=== PATIENT | male | born 1940 | race Caucasian/White ===

== ENCOUNTER 2020-04-13 07:33 | Outpatient (REF) | payer MEDICARE, SELFPAY ==
[2020-04-13 08:14] LABS: MANUAL DIFF FLAG NO
[2020-04-13 08:18] LABS: Basophils Absolute Auto 0.1 X10*3/uL (0.0-0.2); Basophils Percent Auto 1.1 % (0-2); Eosinophils Absolute Auto 0.3 X10*3/uL (0.0-0.4); Hematocrit 38.2 % (42-52); Hemoglobin 12.6 g/dl (14.0-18.0); Imm Gran Abs Auto 0.01 X10*3/uL (0.00-0.03); Imm Gran Pct Auto 0.2 % (0.0-0.4); Lymphocytes Absolute Auto 2.2 X10*3/uL (1.2-4.9); Lymphocytes Percent Auto 34.7 % (20-40); Mean Corpuscular Hemoglobin 32.3 pg (27.0-33.0); Mean Corpuscular Volume 97.9 fL (80-98); Mean Platelet Volume 9.5 fL (9.4-12.4); Monocytes Absolute Auto 0.8 X10*3/uL (0.1-1.2); Monocytes Percent Auto 11.8 % (2-11); Neutrophils Percent Auto 47.2 % (45-73); Platelet Count 279 X10*3/uL (160-400); Red Cell Distribution Width 16.3 % (11.0-16.0); White Blood Count 6.4 X10*3/uL (4.8-10.8)
[2020-04-13 09:21] LABS: Alanine Aminotransferase 17 U/L (0-40); Albumin Level 3.7 g/dL (3.5-5.0); Alkaline Phosphatase 79 U/L (39-117); Anion Gap 11 (12-20); Aspartate Amino Transferase 21 U/L (5-37); Bilirubin Total 0.5 mg/dL (0.0-1.0); Blood Urea Nitrogen 22 mg/dL (9-16); Calcium 9.1 mg/dL (8.4-10.2); Carbon Dioxide 29 mmol/L (22-29); Chloride 105 mmol/L (96-108); Cholesterol 143 mg/dL; Estimated Glomerular Filt Rate > 60; Glucose Fasting 124 mg/dL (60-99); HDL Cholesterol 38 mg/dL; LDL Cholesterol Calculated 80 mg/dl; Potassium 4.6 mmol/l (3.3-5.1); Sodium 140 mmol/L (135-145); Total Protein 6.9 g/dL (6.5-8.0); Triglycerides 127 mg/dL
[2020-04-13 10:25] LABS: Vitamin B12 < 146 pg/mL (200-900)
== END 2020-04-13 07:34 | disposition home or self-care (01) ==
LOC: HO.LAB 07:33
PROVIDERS: Visit Provider Internal Medicine
DX: E11.9 Type 2 diabetes mellitus without complications (principal); D51.0 Vitamin B12 deficiency anemia due to intrinsic factor deficiency
CPT/HCPCS: 36415; 80053; 80061; 82607; 82746; 85025

== ENCOUNTER → 2020-06-14 09:46 | Outpatient (BNV) | payer MEDICARE, SELFPAY | PROVIDERS: PCP Internal Medicine; Visit Provider Internal Medicine | DX: D64.9 Anemia, unspecified (principal); D51.0 Vitamin B12 deficiency anemia due to intrinsic factor deficiency | CPT/HCPCS: 99213; 99214 ==

== ENCOUNTER 2020-10-13 10:02 | Outpatient (REF) | payer MEDICARE, SELFPAY ==
--- NOTE | ~2020-10-13 | XR_ITS ---
EXAMINATION: XR KNEE, RIGHT CLINICAL INFORMATION: Unilateral primary osteoarthritis COMPARISON: None TECHNIQUE: 4 view right knee. FINDINGS: There is no evidence of acute fracture or dislocation of the right knee. Right knee joint spaces are maintained. No right knee effusion. XR/XR knee RT 3V IMPRESSION: No significant right knee abnormality appreciated.
== END 2020-10-13 10:03 | disposition home or self-care (01) ==
LOC: HO.XRAY 10:02
PROVIDERS: PCP Internal Medicine; Visit Provider Internal Medicine
DX: M17.11 Unilateral primary osteoarthritis, right knee (principal)
CPT/HCPCS: 73562

== ENCOUNTER 2021-06-17 06:59 | Outpatient (REF) | payer MEDICARE, MEDICAID, SELFPAY ==
[2021-06-17 07:12] LABS: MANUAL DIFF FLAG NO
[2021-06-17 07:57] LABS: Basophils Absolute Auto 0.1 X10*3/uL (0.0-0.2); Basophils Percent Auto 1.3 % (0-2); Eosinophils Absolute Auto 0.4 X10*3/uL (0.0-0.4); Eosinophils Percent Auto 6.9 % (0-4); Hemoglobin 12.9 g/dl (14.0-18.0); Imm Gran Abs Auto 0.01 X10*3/uL (0.00-0.03); Imm Gran Pct Auto 0.2 % (0.0-0.4); Lymphocytes Absolute Auto 2.2 X10*3/uL (1.2-4.9); Lymphocytes Percent Auto 35.8 % (20-40); Mean Corpuscular HGB Conc 32.3 g/dl (31.0-36.0); Mean Corpuscular Hemoglobin 31.4 pg (27.0-33.0); Mean Corpuscular Volume 97.3 fL (80.0-98.0); Mean Platelet Volume 10.1 fL (9.4-12.4); Monocytes Absolute Auto 0.7 X10*3/uL (0.1-1.2); Monocytes Percent Auto 11.6 % (2-11); Neutrophils Absolute Auto 2.7 x10*3/uL (2.0-8.3); Neutrophils Percent Auto 44.2 % (45-73); Platelet Count 283 X10*3/uL (160-400); Red Blood Count 4.11 X10*6/uL (4.60-5.80); White Blood Count 6.1 X10*3/uL (4.8-10.8)
[2021-06-17 08:24] LABS: Alanine Aminotransferase 18 U/L (0-40); Albumin Level 3.7 g/dL (3.5-5.0); Alkaline Phosphatase 96 U/L (39-117); Anion Gap 9 (12-20); Aspartate Amino Transferase 23 U/L (5-37); Bilirubin Total 0.8 mg/dL (0.0-1.0); Blood Urea Nitrogen 18 mg/dL (9-16); Calcium 9.5 mg/dL (8.4-10.2); Carbon Dioxide 30 mmol/L (22-29); Chloride 107 mmol/L (96-108); Cholesterol 117 mg/dL; Estimated Glomerular Filt Rate > 60; Glucose Fasting 139 mg/dL (60-99); HDL Cholesterol 35 mg/dL; Iron 94 mcg/dL (45-160); LDL Cholesterol Calculated 61 mg/dl; Percent Iron Saturation 28 % (15-50); Potassium 4.4 mmol/L (3.3-5.1); Sodium 142 mmol/L (135-145); Total Iron Binding Capacity 338 mcg/dL (228-428); Triglycerides 106 mg/dL; Unsaturated Iron Binding 244 ug/dL
[2021-06-17 08:29] LABS: Creatinine Urine 123.17 mg/dL; Microalbumin Urine < 5.0 mg/L
[2021-06-19 08:21] LABS: Folate 7.7 ng/mL (> or = 4.0); Vitamin B12 395 pg/mL (200-900)
[2021-06-23 01:06] LABS: Vitamin D 25-OH, D2 <4 ng/mL; Vitamin D 25-OH, D3 28 ng/mL; Vitamin D 25-OH, Total 28 ng/mL (30-100)
== END 2021-06-17 07:00 | disposition home or self-care (01) ==
LOC: HO.LAB 06:59
PROVIDERS: PCP Internal Medicine; Visit Provider Internal Medicine
DX: E55.9 Vitamin D deficiency, unspecified (principal); E11.9 Type 2 diabetes mellitus without complications; E78.5 Hyperlipidemia, unspecified; M17.11 Unilateral primary osteoarthritis, right knee; D64.9 Anemia, unspecified; D51.0 Vitamin B12 deficiency anemia due to intrinsic factor deficiency
CPT/HCPCS: 36415; 80053; 80061; 82043; 82306; 82607; 82746; 83540; 85025

== ENCOUNTER 2021-07-21 14:16 | Emergency (ER) | payer OTHER, SELFPAY ==
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
[2021-07-21 14:24] VITALS: BP 150/79; PULSE 98; RESP 18; TEMP 36.1; O2SAT 98
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
[2021-07-21 16:35] VITALS: BP 123/57; PULSE 84; RESP 18; TEMP 36.6; O2SAT 98
== END 2021-07-21 19:04 | disposition home or self-care (01) ==
PROVIDERS: Emergency Provider Emergency Medicine; PCP Internal Medicine
DX: M19.012 Primary osteoarthritis, left shoulder (principal); M54.50 Low back pain, unspecified; I10 Essential (primary) hypertension; Z79.899 Other long term (current) drug therapy; Z87.891 Personal history of nicotine dependence
CPT/HCPCS: 73030; 99283; 99284

== ENCOUNTER 2021-11-04 06:44 | Outpatient (REF) | payer OTHER, SELFPAY ==
[2021-11-04 09:07] LABS: Alanine Aminotransferase 18 U/L (0-40); Albumin Level 3.7 g/dL (3.5-5.0); Alkaline Phosphatase 88 U/L (39-117); Anion Gap 9 (12-20); Aspartate Amino Transferase 21 U/L (5-37); Bilirubin Total 0.6 mg/dL (0.0-1.0); Blood Urea Nitrogen 18 mg/dL (9-16); Calcium 8.9 mg/dL (8.4-10.2); Carbon Dioxide 29 mmol/L (22-29); Chloride 107 mmol/L (96-108); Cholesterol 130 mg/dL; Estimated Glomerular Filt Rate > 60; Glucose Fasting 125 mg/dL (60-99); HDL Cholesterol 28 mg/dL; LDL Cholesterol Calculated 75 mg/dl; Potassium 4.5 mmol/L (3.3-5.1); Sodium 140 mmol/L (135-145); Triglycerides 139 mg/dL
[2021-11-04 10:20] LABS: Creatinine Urine 217.75 mg/dL; Microalbum/Creatinine Ratio Ur 4.5 ug/mg cr
[2021-11-04 10:28] LABS: Folate 9.3 ng/mL (> or = 4.0); Vitamin B12 356 pg/mL (200-900)
== END 2021-11-04 06:45 | disposition home or self-care (01) ==
LOC: HO.LAB 06:44
PROVIDERS: PCP Internal Medicine; Visit Provider Internal Medicine
DX: E11.9 Type 2 diabetes mellitus without complications (principal); E78.5 Hyperlipidemia, unspecified; D51.0 Vitamin B12 deficiency anemia due to intrinsic factor deficiency
CPT/HCPCS: 36415; 80053; 80061; 82043; 82607; 82746

== ENCOUNTER 2022-07-06 07:03 | Outpatient (REF) | payer OTHER, SELFPAY ==
[2022-07-06 07:11] LABS: MANUAL DIFF FLAG NO
[2022-07-06 07:30] LABS: Basophils Absolute Auto 0.1 X10*3/uL (0.0-0.2); Basophils Percent Auto 1.4 % (0-2); Eosinophils Absolute Auto 0.7 X10*3/uL (0.0-0.4); Eosinophils Percent Auto 9.9 % (0-4); Imm Gran Abs Auto 0.01 X10*3/uL (0.00-0.03); Imm Gran Pct Auto 0.2 % (0.0-0.4); Lymphocytes Absolute Auto 2.5 X10*3/uL (1.2-4.9); Lymphocytes Percent Auto 38.7 % (20-40); Mean Corpuscular HGB Conc 33.3 g/dl (31.0-36.0); Mean Corpuscular Hemoglobin 31.4 pg (27.0-33.0); Mean Corpuscular Volume 94.2 fL (80.0-98.0); Mean Platelet Volume 9.5 fL (9.4-12.4); Monocytes Absolute Auto 0.9 X10*3/uL (0.1-1.2); Monocytes Percent Auto 13.2 % (2-11); Neutrophils Absolute Auto 2.4 x10*3/uL (2.0-8.3); Neutrophils Percent Auto 36.6 % (45-73); Platelet Count 232 X10*3/uL (160-400); Red Blood Count 4.14 X10*6/uL (4.60-5.80); Red Cell Distribution Width 16.2 % (11.0-16.0); White Blood Count 6.6 X10*3/uL (4.8-10.8)
[2022-07-06 07:55] LABS: Creatinine Urine 190.41 mg/dL; Microalbum/Creatinine Ratio Ur 3.6 ug/mg cr
[2022-07-06 08:07] LABS: Alanine Aminotransferase 18 U/L (0-40); Albumin Level 3.5 g/dL (3.5-5.0); Alkaline Phosphatase 81 U/L (39-117); Anion Gap 11 (12-20); Aspartate Amino Transferase 22 U/L (5-37); Bilirubin Total 0.8 mg/dL (0.0-1.0); Blood Urea Nitrogen 20 mg/dL (9-16); Calcium 9.1 mg/dL (8.4-10.2); Carbon Dioxide 29 mmol/L (22-29); Chloride 105 mmol/L (96-108); Cholesterol 135 mg/dL; Estimated Glomerular Filt Rate > 60; Glucose Fasting 141 mg/dL (60-99); HDL Cholesterol 29 mg/dL; LDL Cholesterol Calculated 69 mg/dl; Potassium 4.4 mmol/L (3.3-5.1); Sodium 141 mmol/L (135-145); Total Protein 6.9 g/dL (6.5-8.0); Triglycerides 188 mg/dL
[2022-07-06 08:28] LABS: Vitamin B12 564 pg/mL (200-900); Vitamin D 25-OH Total 28.2 ng/mL (>30)
== END 2022-07-06 07:04 | disposition home or self-care (01) ==
LOC: HO.LAB 07:03
PROVIDERS: PCP Internal Medicine; Visit Provider Internal Medicine
DX: Z00.00 Encounter for general adult medical examination without abnormal findings (principal); E11.9 Type 2 diabetes mellitus without complications; E55.9 Vitamin D deficiency, unspecified; D51.0 Vitamin B12 deficiency anemia due to intrinsic factor deficiency; D64.9 Anemia, unspecified; E78.5 Hyperlipidemia, unspecified
CPT/HCPCS: 36415; 80053; 80061; 82043; 82306; 82607; 82746; 85025

== ENCOUNTER 2022-10-05 06:36 | Outpatient (REF) | payer OTHER, SELFPAY ==
[2022-10-05 07:59] LABS: Alanine Aminotransferase 16 U/L (0-40); Albumin Level 3.5 g/dL (3.5-5.0); Alkaline Phosphatase 83 U/L (39-117); Anion Gap 10 (12-20); Aspartate Amino Transferase 20 U/L (5-37); Blood Urea Nitrogen 17 mg/dL (9-16); Calcium 9.3 mg/dL (8.4-10.2); Carbon Dioxide 28 mmol/L (22-29); Chloride 106 mmol/L (96-108); Cholesterol 114 mg/dL; Estimated Glomerular Filt Rate > 60; Glucose Fasting 133 mg/dL (60-99); HDL Cholesterol 23 mg/dL; LDL Cholesterol Calculated 57 mg/dl; Potassium 4.2 mmol/L (3.3-5.1); Sodium 140 mmol/L (135-145); Total Protein 7.1 g/dL (6.5-8.0); Triglycerides 172 mg/dL
[2022-10-05 08:15] LABS: Vitamin D 25-OH Total 31.7 ng/mL (>30)
[2022-10-05 08:34] LABS: Folate 8.9 ng/mL (> or = 4.0); Vitamin B12 577 pg/mL (200-900)
[2022-10-05 09:15] LABS: Creatinine Urine 176.65 mg/dL; Microalbumin Urine < 5.0 mg/L
== END 2022-10-05 06:37 | disposition home or self-care (01) ==
LOC: HO.LAB 06:36
PROVIDERS: PCP Internal Medicine; Visit Provider Internal Medicine
DX: E11.9 Type 2 diabetes mellitus without complications (principal); E55.9 Vitamin D deficiency, unspecified; E53.8 Deficiency of other specified B group vitamins; E78.5 Hyperlipidemia, unspecified
CPT/HCPCS: 36415; 80053; 80061; 82043; 82306; 82607; 82746

== ENCOUNTER 2022-12-11 09:08 | Outpatient (AMB) | payer OTHER, SELFPAY ==
[2022-12-11 09:31] VITALS: BP 108/70; BMI 28.7
--- NOTE | 2022-12-11 09:31 | A.OFFPC_ITS ---
Vital Signs 12/11/22 09:31 Height 5 ft 4 in Weight 167 lb BMI 28.7 BP 108/70 Blood Pressure Location Lt brachial Position Sitting Intake Visit Reasons: dm Intake Note: Patient here for a follow up DM Flow Match Sofa Cutter Required: No Accompanied by: Self / Same As Patient Allergies terbinafine Allergy (Intermediate, Verified 12/11/22 09:49) dyspepsia influenza vaccine Allergy (Intermediate, Uncoded 12/11/22 09:49) fever,chills Medication List - Last Reconciled 12/11/22 by Yennifer Rodrigez MD aspirin (Adult Low Dose Aspirin) 81 mg PO DAILY 90 days atorvastatin 40 mg PO DAILY 90 days loratadine (Allergy Relief (loratadine)) 10 mg PO DAILY 90 days losartan 25 mg PO DAILY 90 days mecobalamin (vitamin B12) 1 mcg IM DAILY metformin 500 mg PO BID 90 days pioglitazone 45 mg PO DAILY 90 days Tobacco use date assessed: 07/11/22 Fall risk assessment: 2 + Falls in past year Last assessed Fall Risk: 12/11/22 Dental Screening Dental Screen Date: 12/11/22 Did you have a dental visit in the last 12 months?: No Did you have a dental problem in the last 6 months where you did not have access to dental care?: No HPI HPI Comments History of Present Illness Details This is a 62-year-old male with diabetes mellitus type 2, hypertension, dyslipidemia and pernicious anemia that comes today for follow-up on his conditions. A1c within goal. Blood pressure stable. LDL within goal. Vitamin B12 normal on supplements. No chest pain or shortness of breath. [facility] Medical History Diabetes mellitus Dyslipidemia Essential hypertension Osteoarthritis of right knee Pernicious anemia Surgical History History of laparoscopic cholecystectomy History of left cataract extraction History of shoulder surgery Family History Father Stroke Mother Diabetes Daughter Asthma Son Asthma Son Asthma Social History Household Members: Significant Other Housing: Apartment Alcohol intake: current Alcohol intake frequency: holidays/special occasions only Alcohol type: beer, wine and hard liquor Patient Tobacco Use Status: Former Tobacco user Tobacco use type: Cigarette Cigarette Packs Per Day: 2 e-Cigarette/Vaping Use: Never Used Second Hand Smoke Exposure: No service: No Current occupational status: disabled Cognitive needs: No Hearing needs: No Vision needs: Yes Questionnaire Thrive Questionnaire Date Thrive assessed: 07/11/22 BALDO-7 AMB Questionnaire BALDO-7 Date BALDO - 7 assessed: 07/11/22 Source: Developed by Drs. Alfred Gallagher, Emy Denson, Zack Jeff and colleagues, with an educational bin from [employer]. Review of Systems Const All systems reviewed & are unremarkable except as noted in HPI and below Eyes Reports no additional complaints, Denies change in vision and Denies other visual disturbances Card Denies chest pain at rest, Denies chest pain with activity, Denies edema, Denies irregular heart rhythm, Denies claudication, Denies dyspnea, Denies dyspnea on exertion, Denies orthopnea, Denies paroxysmal nocturnal dyspnea and Denies slow heart rate Resp Denies cough, Denies dyspnea and Denies dyspnea on exertion GI Denies abdominal pain, Denies change in bowel habits, Denies excessive flatus, Denies nausea and Denies vomiting Denies urinary hesitancy, Denies urinary incontinence and Denies urinary urgency Musc Denies abnormal gait, Denies atrophy, Denies deformity and Denies limited range of motion Skin/Breast Denies bleeding lesions, Denies changing lesions and Denies rash Neuro Denies abnormal gait and Denies lack of coordination Physical exam (Primary Care) Vital Signs: Last Vital Signs BP 108/70 12/11/22 09:31 BMI result Body Mass Index 28.7 Tobacco/Smoking Status: Tobacco use Status Tobacco use date assessed 07/11/22 12/11/22 09:34 Patient Tobacco Use Status Former Tobacco user 12/11/22 09:34 Tobacco use type Cigarette 12/11/22 09:34 e-Cigarette/Vaping Use Never Used 12/11/22 09:34 Thrive Assessment: Date of Thrive Assessment Date Thrive assessed 07/11/22 12/11/22 09:34 Eyes General: appearance normal, both eyes and all related structures Eyelids: Yes eyelids normal Conjunctivae: conjunctivae normal Neck Neck: Yes normal visual inspection and Yes supple Resp Effort & Inspection: normal respiratory effort Auscultation: clear to auscultation bilaterally Cardio Jugular venous distension: no JVD Rate: regular rate Rhythm: regular rhythm Heart sounds: S1 normal heart sound present and S2 normal heart sound present Extrem General: Yes full ROM Results AMB Hemoglobin A1c AMB Hemoglobin A1c 6.8 % Last Edit by NIRMALA Mart on 12/11/22 09:4 0 Results Reviewed Results Reviewed: Laboratory Last Values Hgb A1c (Clinic) 6.8 % (4.0-6.0) H 12/11/22 09:34 Assessment and Plan Assessment & Plan (1) Diabetes mellitus: Code(s): E11.9 - Type 2 diabetes mellitus without complications Qualifiers: Diabetes mellitus type: type 2 Diabetes mellitus half-way insulin use: without terminal operations supervisor use Diabetes mellitus complication status: without complication Qualified Code(s): E11.9 - Type 2 diabetes mellitus without complications Plan: Continue metformin and Actos. A1c goal is equal or less than 7%. (2) Pernicious anemia: Code(s): D51.0 - Vitamin B12 deficiency anemia due to intrinsic factor deficiency Plan: Continue vitamin B12 supplements. Start folic acid. (3) Essential hypertension: Code(s): I10 - Essential (primary) hypertension Plan: Continue losartan. Blood pressure goal is equal or less than 130/80 P (4) Dyslipidemia: Code(s): E78.5 - Hyperlipidemia, unspecified Plan: Continue statins. LDL goal is less than 70. Orders: Orders Lipid Panel 4 Months E78.5 - Hyperlipidemia, unspecified Microalbumin, Random (w Creat) 4 Months E11.9 - Type 2 diabetes mellitus without complications Vitamin B12 and Folate 4 Months E53.8 - Deficiency of other specified B group vitamins Vitamin D 25-OH Total 4 Months E55.9 - Vitamin D deficiency, unspecified Comprehensive [place]. Panel Fast 4 Months E11.9 - Type 2 diabetes mellitus without complications AMB Hemoglobin A1c Today E11.9 - Type 2 diabetes mellitus without complications Referrals Ophthalmology Referral E11.9 - Type 2 diabetes mellitus without complications Medications: New folic acid 1 mg PO DAILY 90 tabs 1RF 90 days Coding Level of Care Code Est Pt Level 4 (84524) Diagnoses Diabetes mellitus E11.9 Diabetes mellitus type: type 2 Diabetes mellitus terminal operations supervisor insulin use: without half-way use Diabetes mellitus complication status: without complication Pernicious anemia D51.0 Essential hypertension I10 Dyslipidemia E78.5 Time Spent (min) 21
== END 2022-12-11 10:19 | disposition home or self-care (01) ==
PROVIDERS: PCP Internal Medicine; Visit Provider Internal Medicine
DX: E11.9 Type 2 diabetes mellitus without complications (principal); D51.0 Vitamin B12 deficiency anemia due to intrinsic factor deficiency; I10 Essential (primary) hypertension; E78.5 Hyperlipidemia, unspecified
CPT/HCPCS: 83036; 99214

== ENCOUNTER 2023-05-29 10:19 | Outpatient (AMB) | payer OTHER, SELFPAY ==
--- NOTE | 2023-05-29 10:21 | A.OFFPC_ITS ---
Vital Signs 05/29/23 10:24 Height 5 ft 7 in Weight 166 lb BMI 26.0 BP 108/62 Blood Pressure Location Lt brachial Position Sitting Intake Visit Reasons: dm Intake Note: Patient here for a follow up DM Quality Worker Required: No Accompanied by: Self / Same As Patient Allergies terbinafine Allergy (Intermediate, Verified 05/29/23 10:37) dyspepsia influenza vaccine Allergy (Intermediate, Uncoded 05/29/23 10:37) fever,chills Medication List - Last Reconciled 05/29/23 by Yennifer Rodrigez MD aspirin (Adult Low Dose Aspirin) 81 mg PO DAILY 90 days atorvastatin 40 mg PO DAILY 90 days folic acid 1 mg PO DAILY 90 days loratadine (Allergy Relief (loratadine)) 10 mg PO DAILY 90 days losartan 25 mg PO DAILY 90 days mecobalamin (vitamin B12) 1 mcg IM DAILY metformin 500 mg PO BID 90 days pioglitazone 45 mg PO DAILY 90 days Tobacco use date assessed: 05/29/23 Fall risk assessment: 1 Fall in past year Last assessed Fall Risk: 05/29/23 Dental Screening Dental Screen Date: 05/29/23 Did you have a dental visit in the last 12 months?: No Did you have a dental problem in the last 6 months where you did not have access to dental care?: No Was dental information given to patient?: Patient has dentist HPI HPI Comments History of Present Illness Details This is an 82-year-old male with diabetes mellitus type 2, hypertension, dyslipidemia and pernicious anemia that comes today for follow-up on his conditions. A1c elevated and I will increase metformin. He will continue Actos. Blood pressure stable. Last LDL within goal. On vitamin B12 injections once a month for his pernicious anemia which is follow by Hematology-Oncology. No chest pain or shortness of breath. [facility] Medical History Osteoarthritis of right knee Dyslipidemia Essential hypertension Pernicious anemia Diabetes mellitus Surgical History History of left cataract extraction History of laparoscopic cholecystectomy History of shoulder surgery Family History Father Stroke Mother Diabetes Daughter Asthma Son Asthma Son Asthma Social History Household Members: Significant Other Housing: Apartment Alcohol intake: current Alcohol intake frequency: holidays/special occasions only Alcohol type: beer, wine and hard liquor Patient Tobacco Use Status: Former Tobacco user Tobacco use type: Cigarette Cigarette Packs Per Day: 2 e-Cigarette/Vaping Use: Never Used Second Hand Smoke Exposure: No service: No Current occupational status: disabled Cognitive needs: No Hearing needs: No Vision needs: Yes Questionnaire PHQ-9 Over the last 2 weeks, how often have you been bothered by any of the following problems? 1. Little interest or pleasure in doing things: not at all 2. Feeling down, depressed, or hopeless: not at all 3. Trouble falling or staying asleep, or sleeping too much: not at all 4. Feeling tired or having little energy: not at all 5. Poor appetite or overeating: not at all 6. Feeling bad about yourself - or that you are a failure or have let yourself or your family down: not at all 7. Trouble concentrating on things, such as reading the newspaper or watching television: not at all 8. Moving or speaking so slowly that other people could have noticed. Or the opposite - being so fidgety or restless that you have been moving around a lot more than usual: not at all 9. Thoughts that you would be better off or of hurting yourself in some way: not at all Total score: 0 Depression Screening Interpretation: Negative Depression Screening Done: Yes 30199 - PHQ-9 Billing: Yes Source: Developed by Drs. Alfred Gallagher, Emy Denson, Zack Jeff and colleagues, with an educational bin from [employer]. Thrive Questionnaire Date Thrive assessed: 05/29/23 I am a: Patient What is your living situation today?: I have a steady place to live Within the past 12 months, did the food you bought not last and you didn't have the money to get more?: Never true Within the past 12 months, did you worry whether your food would run out before you got money to buy more?: Never true Do you have trouble paying for medicines?: No Do you have trouble getting transportation to medical appointments?: No Do you have trouble paying your heating and electricity bill?: No Do you have trouble taking care of your child, family member or friend?: No Do you have trouble with day-to-day activities such as bathing, preparing meals, shopping, managing finances, etc.?: No Are you currently unemployed and looking for a job?: No Are you interested in more education?: No Please select the resources that you would like help with: None Currently or been in a relationship where the following occur: no concerns reported THRIVE Score: 0 AUDIT C Alcohol Use Questionnaire (AUDIT-C) 1. How often do you have a drink containing alcohol?: Monthly or less 2. How many drinks containing alcohol do you have on a typical day when you are drinking?: 1 or 2 3. How often do you have six or more drinks on one occasion?: Never Total Score: 1 Score Reviewed/Action Taken: Yes BALDO-7 AMB Questionnaire BALDO-7 Date BALDO - 7 assessed: 05/29/23 Feeling nervous, anxious, or on edge: 0 = Not at all Not being able to stop or control worryin = Not at all Worrying too much about different things: 0 = Not at all Trouble relaxin = Not at all Being so restless that it is hard to sit still: 0 = Not at all Becoming easily annoyed or irritable: 0 = Not at all Feeling afraid as if something awful might happen: 0 = Not at all Total BALDO-7 score (0-4 normal; 5-9 mild; 10-14 moderate; 15-21 severe): 0 Source: Developed by Drs. Alfred Gallagher, Emy Denson, Zack Jeff and colleagues, with an educational bin from [employer]. BALDO-7 Assessment Billing BALDO-7 Assessment Tool: BALDO-7 Assessment 61399 Review of Systems Const All systems reviewed & are unremarkable except as noted in HPI and below Eyes Reports no additional complaints, Denies change in vision and Denies other visual disturbances Card Denies chest pain at rest, Denies chest pain with activity, Denies edema, Denies irregular heart rhythm, Denies claudication, Denies dyspnea, Denies dyspnea on exertion, Denies orthopnea, Denies paroxysmal nocturnal dyspnea and Denies slow heart rate Resp Denies cough, Denies dyspnea and Denies dyspnea on exertion GI Denies abdominal pain, Denies change in bowel habits, Denies excessive flatus, Denies nausea and Denies vomiting Denies urinary hesitancy, Denies urinary incontinence and Denies urinary urgency Musc Denies abnormal gait, Denies atrophy, Denies deformity and Denies limited range of motion Skin/Breast Denies bleeding lesions, Denies changing lesions and Denies rash Neuro Denies abnormal gait, Denies behavioral changes and Denies lack of coordination Psych Denies behavioral changes Physical exam (Primary Care) Vital Signs: Last Vital Signs BP 108/62 05/29/23 10:24 BMI result Body Mass Index 26.0 Tobacco/Smoking Status: Tobacco use Status Tobacco use date assessed 05/29/23 05/29/23 10:30 Patient Tobacco Use Status Former Tobacco user 05/29/23 10:30 Tobacco use type Cigarette 05/29/23 10:30 e-Cigarette/Vaping Use Never Used 05/29/23 10:30 PHQ-9: PHQ-9 Score PHQ-9: Total score 0 05/29/23 14:38 Depression Screening Interpretation: Negative Thrive Assessment: Date of Thrive Assessment Date Thrive assessed 05/29/23 05/29/23 10:30 Currently or been in a relationship where the following occur: no concerns reported Eyes General: appearance normal, both eyes and all related structures Eyelids: Yes eyelids normal Conjunctivae: conjunctivae normal Neck Neck: Yes normal visual inspection and Yes supple Resp Effort & Inspection: normal respiratory effort Auscultation: clear to auscultation bilaterally Cardio Jugular venous distension: no JVD Rate: regular rate Rhythm: regular rhythm Heart sounds: S1 normal heart sound present and S2 normal heart sound present Extrem General: Yes full ROM Results AMB Hemoglobin A1c AMB Hemoglobin A1c 7.4 % Last Edit by NIRMALA Mart on 05/29/23 10:3 7 Results Reviewed Results Reviewed: Laboratory Last Values Hgb A1c (Clinic) 7.4 % (4.0-6.0) H 05/29/23 10:31 Assessment and Plan Assessment & Plan (1) Diabetes mellitus: Code(s): E11.9 - Type 2 diabetes mellitus without complications Qualifiers: Diabetes mellitus complication status: without complication Diabetes mellitus mcc insulin use: without bed bug exterminator use Diabetes mellitus type: type 2 Qualified Code(s): E11.9 - Type 2 diabetes mellitus without complications Plan: Increase metformin. Continue Actos. A1c goal is equal or less than 7%. (2) Essential hypertension: Code(s): I10 - Essential (primary) hypertension Plan: Continue losartan. Blood pressure goal is equal or less than 130/80. (3) Dyslipidemia: Code(s): E78.5 - Hyperlipidemia, unspecified Plan: Continue statins. LDL goal is less than 70. (4) Pernicious anemia: Code(s): D51.0 - Vitamin B12 deficiency anemia due to intrinsic factor deficiency Plan: Continue vitamin B12 monthly injections. Orders: Orders AMB Hemoglobin A1c Today E11.9 - Type 2 diabetes mellitus without complications Medications: New metformin 1,000 mg PO BID 180 tabs 1RF 90 days E11.9 - Type 2 diabetes mellitus without complications terbinafine HCl 250 mg PO DAILY 90 tabs 0RF 90 days Discontinued metformin Discontinued Reason: Patient Completed Course 500 mg PO BID 90 days 180 tabs 1RF Coding Level of Care Code Est Pt Level 4 (81027) Diagnoses Type 2 diabetes mellitus without complication, without long-term current use of insulin E11.9 Diabetes mellitus complication status: without complication Diabetes mellitus bed bug exterminator insulin use: without mcc use Diabetes mellitus type: type 2 Essential hypertension I10 Dyslipidemia E78.5 Pernicious anemia D51.0 Additional Codes BALDO-7 Assessment Billing - BALDO-7 Assessment Tool: BALDO-7 Assessment 81078 ([id number]) Time Spent (min) 23
[2023-05-29 10:24] VITALS: BP 108/62; BMI 26.0
== END 2023-05-29 10:47 | disposition home or self-care (01) ==
PROVIDERS: PCP Internal Medicine; Visit Provider Internal Medicine
DX: E11.69 Type 2 diabetes mellitus with other specified complication (principal); I10 Essential (primary) hypertension; E78.5 Hyperlipidemia, unspecified; D51.0 Vitamin B12 deficiency anemia due to intrinsic factor deficiency
CPT/HCPCS: 83036; 99214

== ENCOUNTER 2023-10-03 10:22 | Outpatient (AMB) | payer OTHER, SELFPAY ==
[2023-10-03 10:26] VITALS: BP 112/70; BMI 25.4
--- NOTE | 2023-10-03 10:26 | A.OFFPC_ITS ---
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 Required: No Accompanied by: Self / Same As Patient Allergies terbinafine Allergy (Intermediate, Verified 10/03/23 10:34) dyspepsia influenza vaccine Allergy (Intermediate, Uncoded 10/03/23 10:34) fever,chills Medication List - Last Reconciled 10/03/23 by Yennifer Rodrigez MD aspirin (Adult Low Dose Aspirin) 81 mg PO DAILY 90 days atorvastatin 40 mg PO DAILY 90 days folic acid 1 mg PO DAILY 90 days loratadine (Allergy Relief (loratadine)) 10 mg PO DAILY 90 days losartan 25 mg PO DAILY 90 days metformin 1,000 mg PO BID 90 days pioglitazone 45 mg PO DAILY 90 days terbinafine HCl 250 mg PO DAILY 90 days Tobacco use date assessed: 05/29/23 Fall risk assessment: 1 Fall in past year Last assessed Fall Risk: 10/03/23 Dental Screening Dental Screen Date: 05/29/23 HPI HPI Comments History of Present Illness Details This is an 83-year-old male with diabetes mellitus type 2, hypertensi on, dyslipidemia and allergic rhinitis that comes today for follow-up on his conditions. A1c elevated and he is taking metformin only once a day and I recommend to take it twice a day. Blood pressure stable. Lipid panel will be order and his LDL goal should be less than 70. On antihistamines as needed for his allergic rhinitis. No chest pain or shortness on breath. Has a systolic murmur and echocardiogram will be order. No leg swelling or weight changes. [facility] Medical History (Updated 10/03/23 @ 10:46 by Yennifer Rodrigez MD) Osteoarthritis of right knee Dyslipidemia Essential hypertension Pernicious anemia Diabetes mellitus Surgical History History of left cataract extraction History of laparoscopic cholecystectomy History of shoulder surgery Family History Father Stroke Mother Diabetes Daughter Asthma Son Asthma Son Asthma Social History Household Members: Significant Other Housing: Apartment Alcohol intake: current Alcohol intake frequency: holidays/special occasions only Alcohol type: beer, wine and hard liquor Patient Tobacco Use Status: Former Tobacco user Tobacco use type: Cigarette Cigarette Packs Per Day: 2 e-Cigarette/Vaping Use: Never Used Second Hand Smoke Exposure: No service: No Current occupational status: disabled Cognitive needs: No Hearing needs: No Vision needs: Yes Questionnaire Thrive Questionnaire Date Thrive assessed: 05/29/23 BALDO-7 AMB Questionnaire BALDO-7 Date BALDO - 7 assessed: 05/29/23 Source: Developed by Drs. Alfred Gallagher, Emy Denson, Zack Jeff and colleagues, with an educational bin from [employer]. Review of Systems Const All systems reviewed & are unremarkable except as noted in HPI and below Card Denies chest pain at rest, Denies chest pain with activity, Denies edema, Denies irregular heart rhythm, Denies claudication, Denies dyspnea, Denies dyspnea on exertion, Denies orthopnea, Denies paroxysmal nocturnal dyspnea and Denies slow heart rate Resp Denies cough, Denies dyspnea and Denies dyspnea on exertion Physical exam (Primary Care) Vital Signs: Last Vital Signs BP 112/70 10/03/23 10:26 BMI result Body Mass Index 25.4 Tobacco/Smoking Status: Tobacco use Status Tobacco use date assessed 05/29/23 10/03/23 10:29 Patient Tobacco Use Status Former Tobacco user 10/03/23 10:29 Tobacco use type Cigarette 10/03/23 10:29 e-Cigarette/Vaping Use Never Used 10/03/23 10:29 Thrive Assessment: Date of Thrive Assessment Date Thrive assessed 05/29/23 10/03/23 10:29 Const General: cooperative, healthy appearing and comfortable Nutritional Appearance: average body habitus Resp Effort & Inspection: normal respiratory effort Auscultation: clear to auscultation bilaterally Cardio Jugular venous distension: no JVD Rate: regular rate Rhythm: regular rhythm Heart sounds: Murmur heart sound present systolic Extrem General: Yes full ROM Results AMB Hemoglobin A1c AMB Hemoglobin A1c 6.8 % Last Edit by NIRMALA Mart on 10/03/23 10:3 3 Results Reviewed Results Reviewed: Laboratory Last Values Hgb A1c (Clinic) 6.8 % (4.0-6.0) H 06/20/24 10:20 Assessment and Plan Assessment & Plan (1) Diabetes mellitus: Code(s): E11.9 - Type 2 diabetes mellitus without complications Qualifiers: Diabetes mellitus type: type 2 Diabetes mellitus skilled nursing insulin use: without long term care administrator use Diabetes mellitus complication status: without complication Qualified Code(s): E11.9 - Type 2 diabetes mellitus without complications Plan: Take metformin twice a day. Continue Actos. A1c goal is equal or less than 7%. (2) Essential hypertension: Code(s): I10 - Essential (primary) hypertension Plan: Continue losartan. Blood pressure goal is equal or less than 130/80. (3) Dyslipidemia: Code(s): E78.5 - Hyperlipidemia, unspecified Plan: Continue statins. Repeat lipid panel. LDL goal is less than 70. (4) Allergic rhinitis: Code(s): J30.9 - Allergic rhinitis, unspecified Qualifiers: Allergic rhinitis trigger: pollen Allergic rhinitis seasonality: seasonal Qualified Code(s): J30.1 - Allergic rhinitis due to pollen Plan: Continue antihistamines as needed. Orders: Orders AMB Hemoglobin A1c Today E11.9 - Type 2 diabetes mellitus without complications Vitamin D 25-OH Total Today E55.9 - Vitamin D deficiency, unspecified Lipid Panel Today E78.5 - Hyperlipidemia, unspecified Microalbumin, Random (w Creat) Today E11.9 - Type 2 diabetes mellitus without complications Vitamin B12 and Folate Today D51.0 - Vitamin B12 deficiency anemia due to intrinsic factor deficiency, E53.8 - Deficiency of other specified B group vitamins Comprehensive [place]. Panel Fast Today E11.9 - Type 2 diabetes mellitus without complications CA echo transthoracic complete Today R01.1 - Cardiac murmur, unspecified Coding Level of Care Code Est Pt Level 4 (40363) Complex EM visit Add On G2211 Diagnoses Type 2 diabetes mellitus without complication, without long-term current use of insulin E11.9 Diabetes mellitus type: type 2 Diabetes mellitus skilled nursing insulin use: without skilled nursing use Diabetes mellitus complication status: without complication Essential hypertension I10 Dyslipidemia E78.5 Seasonal allergic rhinitis due to pollen J30.1 Allergic rhinitis trigger: pollen Allergic rhinitis seasonality: seasonal Time Spent (min) 22
== END 2023-10-03 10:45 | disposition home or self-care (01) ==
PROVIDERS: PCP Internal Medicine; Visit Provider Internal Medicine
DX: E11.9 Type 2 diabetes mellitus without complications (principal); I10 Essential (primary) hypertension; E78.5 Hyperlipidemia, unspecified; J30.1 Allergic rhinitis due to pollen
CPT/HCPCS: 83036; 99214; G2211

== ENCOUNTER → 2023-10-24 10:30 | Outpatient (REF) | payer OTHER, SELFPAY ==
--- NOTE | 2023-10-24 10:35 | CA_ITS ---
Transthoracic Echocardiogram Patient (Last, First, Middle): Gary Jaramillo, Gender: Male Date of : 1940 Age: 83 Procedure Date: 10/24/2023 Procedure Type: Transthoracic Echocardiogram Location: OP Height: 165.1 cm Weight: 68.95 kg BSA: 1.76 m2 Heart Rate: bpm BP: 110 / 72 mmHg Chief Engineer Research: TO Referring MD: Yennifer Rodrigez MD Lymphedema Therapist: Emmanuel Gillette MD Symptoms: R01.1 - Cardiac murmur, unspecified Study Quality: Adequate ECG Rhythm: Sinus Conclusions: - 1. Normal LV ejection fraction 55-60% with impaired relaxation filling pattern 2. Fibrocalcific aortic valve changes noted with no significant aortic stenosis 3. Mild mitral regurgitation 4. Not well visualized ascending aorta but on view measured at 3.9 cm which is mildly dilated 5. Normal RV systolic pressure 6. No gross pericardial effusion Findings Left Ventricle Normal left ventricular size, thickness, and systolic function. The visually estimated ejection fraction is between 55-60%. Spectral Doppler is indicative of an impaired relaxation filling pattern. E/E prime ratio is between 8 and 15 consistent with indeterminate filling pressures. Right Ventricle Normal right ventricular cavity size and systolic function. Atria The left atrium is likely dilated. There is no evidence of interatrial shunt. The right atrium is normal in size. Aortic Valve The aortic valve was not well visualized. There is mild calcification of the aortic valve. There is mild thickening of the aortic valve. There is no aortic valve stenosis. There is no aortic valve regurgitation. Mitral Valve There is mild anterior and posterior mitral leaflet thickening. There is mild mitral valve regurgitation. There is no mitral valve stenosis. Pulmonic Valve The pulmonic valve is likely normal. There is trace pulmonic valve regurgitation. Tricuspid Valve Normal tricuspid valve structure. There is trace tricuspid valve regurgitation. The right ventricular systolic pressure is normal. The right ventricular systolic pressure is 19 mmHg. Normal right atrial pressure. There is no evidence of pulmonary hypertension. Great Vessels The aorta was not well visualized. The pulmonary artery was not well visualized. There is mild dilatation of the ascending aorta measuring 3.90 cm. Venous The inferior vena cava is normal in size and collapses greater than 50% with inspiration. Pericardium/Pleural There is no evidence of pericardial effusion. Measurements 2D Linear Measurements IVSd: 0.95 0.6-0.9/0.6-1.0 cm LVIDd: 3.84 3.9-5.3/4.2-5.9 cm LVIDd Index: 2.18 2.4-3.2/2.2-3.1 cm/m2 LVIDs: 2.37 2.0-3.6 cm LVPWd: 0.75 0.7-1.1 cm LA Diam: 2.80 2.7-3.8/3.0-4.0 cm LAIDs Index: 1.59 1.5-2.3 cm/m2 LV Mass: 118.52 67-162/88-224 g LV Mass Index: 67.34 43-95/49-115 g/m2 LVOT Diam: 2.20 3.0+(-)1.3 cm 2D Systolic Function EF 4C: 60.60 >55% EF 2C: 57.10 >55% EF BiP: 58.50 >55% Mitral Valve MV Pk E: 0.54 MV PK A: 0.57 MV Decel Time: 207.00 E/A: 1.00 E'Lateral: 5.55 E'Medial: 4.68 E/E' Med: 11.50 E/E' Lat: 9.70 PHT: 61.00 MVA PHT: 3.61 Decel [place]: 2.60 Aortic Valve AoV Pk Ryan: 1.68 AoV Mn Ryan: 1.00 AoV VTI: 0.30 AoV Pk Grad: 11.00 Aov Mn Grad: 5.00 ARMANDO Cont.VTI: 2.44 LVOT LVOT Pk Ryan: 0.99 LVOT Mn Ryan: 0.53 LVOT VTI: 0.19 LVOT Pk Grad: 4.00 LVOT Mn Grad: 1.00 LVOT Diam: 2.20 LVOT Area: 3.80 Diastolic Function MV Pk E: 0.54 MV Pk A: 0.57 E/A: 1.00 E'Medial: 4.68 E/E' Med: 11.50 E' Laterial: 5.55 E/E' Lat: 9.70 Right Ventricle TAPSE (mm): 19.50 TVS' Ryan: 10.10 Tricuspid Valve TR Pk Ryan: 1.99 TR Pk Grad: 16.00 RA Press: 3.00 RVSP: 19.00 Great Vessels Aorta Sinus of Valsalva: 3.23 2.0-3.5 cm Ao Asc: 3.90 2.1-3.4 cm Ao Arch: 3.20 Updated in Other Vendor System with Status of Final Emmanuel Gillette MD electronically signed on 10/24/2023 2:01:04 PM with status of Final
== END ==
LOC: HO.CARD 10:30
PROVIDERS: PCP Internal Medicine; Visit Provider Internal Medicine
DX: R01.1 Cardiac murmur, unspecified (principal)
CPT/HCPCS: 93306

== ENCOUNTER → 2023-10-24 10:35 | Outpatient (BNV) | payer OTHER, SELFPAY | PROVIDERS: PCP Internal Medicine; Visit Provider Internal Medicine Cardiovascular Disease | DX: I34.0 Nonrheumatic mitral (valve) insufficiency (principal); I35.8 Other nonrheumatic aortic valve disorders | CPT/HCPCS: 93306 ==

== ENCOUNTER 2024-02-27 09:26 | Outpatient (AMB) | payer OTHER, SELFPAY ==
[2024-02-27 09:35] VITALS: BP 122/70; BMI 24.6
--- NOTE | 2024-02-27 09:35 | MHC.PC.OV ---
Vital Signs 02/27/24 09:35 Height 5 ft 7 in Weight 157 lb BMI 24.6 BP 122/70 Blood Pressure Location Lt brachial Position Sitting Intake Visit Reasons: dm Intake Note: Patient here for a follow up DM Quality Worker Required: No Accompanied by: Self / Same As Patient Allergies terbinafine Allergy (Intermediate, Verified 02/27/24 10:09) dyspepsia influenza vaccine Allergy (Intermediate, Uncoded 02/27/24 10:09) fever,chills Medication List - Last Reconciled 02/27/24 by Yennifer Rodrigez MD aspirin (Adult Low Dose Aspirin) 81 mg PO DAILY 90 days atorvastatin 40 mg PO DAILY 90 days folic acid 1 mg PO DAILY 90 days loratadine (Allergy Relief (loratadine)) 10 mg PO DAILY 90 days losartan 25 mg PO DAILY 90 days metformin 1,000 mg PO BID 90 days pioglitazone 45 mg PO DAILY 90 days terbinafine HCl 250 mg PO DAILY 90 days Tobacco use date assessed: 05/29/23 Fall risk assessment: 1 Fall in past year Last assessed Fall Risk: 02/27/24 Dental Screening Dental Screen Date: 02/27/24 Did you have a dental visit in the last 12 months?: Yes Did you have a dental problem in the last 6 months where you did not have access to dental care?: No Was dental information given to patient?: Patient has dentist HPI HPI Comments History of Present Illness Details This is an 83-year-old male with diabetes mellitus type 2, hypertension, dyslipidemia and pernicious anemia that comes today for follow-up on his conditions. A1c within goal being 6.2% today. Lipid panel will be order and his LDL goal should be less than 70. Blood pressure stable. Vitamin B12 levels will be order for his pernicious anemia. No chest pain or shortness on breath. [facility] Medical History Osteoarthritis of right knee Dyslipidemia Essential hypertension Pernicious anemia Diabetes mellitus Surgical History History of left cataract extraction History of laparoscopic cholecystectomy History of shoulder surgery Family History Father Stroke Mother Diabetes Daughter Asthma Son Asthma Son Asthma Social History Household Members: Significant Other Housing: Apartment Alcohol intake: current Alcohol intake frequency: holidays/special occasions only Alcohol type: beer, wine and hard liquor Patient Tobacco Use Status: Former Tobacco user Tobacco use type: Cigarette Cigarette Packs Per Day: 2 e-Cigarette/Vaping Use: Never Used Second Hand Smoke Exposure: No service: No Current occupational status: disabled Cognitive needs: No Hearing needs: No Vision needs: Yes Questionnaire Thrive Questionnaire Date Thrive assessed: 05/29/23 BALDO-7 AMB Questionnaire BALDO-7 Date BALDO - 7 assessed: 05/29/23 Source: Developed by Drs. Alfred Gallagher, Emy Denson, Zack Jeff and colleagues, with an educational bin from [employer]. Review of Systems Const All systems reviewed & are unremarkable except as noted in HPI and below Card Denies chest pain at rest, Denies chest pain with activity, Denies edema, Denies irregular heart rhythm, Denies claudication, Denies dyspnea, Denies dyspnea on exertion, Denies orthopnea, Denies paroxysmal nocturnal dyspnea and Denies slow heart rate Resp Denies cough, Denies dyspnea and Denies dyspnea on exertion Physical exam (Primary Care) Vital Signs: Last Vital Signs BP 122/70 02/27/24 09:35 BMI result Body Mass Index 24.6 Tobacco/Smoking Status: Tobacco use Status Tobacco use date assessed 05/29/23 02/27/24 09:37 Patient Tobacco Use Status Former Tobacco user 02/27/24 09:37 Tobacco use type Cigarette 02/27/24 09:37 e-Cigarette/Vaping Use Never Used 02/27/24 09:37 Thrive Assessment: Date of Thrive Assessment Date Thrive assessed 05/29/23 02/27/24 09:37 Resp Effort & Inspection: normal respiratory effort Auscultation: clear to auscultation bilaterally Cardio Jugular venous distension: no JVD Rate: regular rate Rhythm: regular rhythm Heart sounds: S1 normal heart sound present and S2 normal heart sound present Extrem General: Yes full ROM Office Procedures Flu Questionnaire Does the patient have a severe egg allergy?: No Does the patient have severe life threatening allergies?: No Does the patient have a fever or illness today?: No Has the patient ever had Guillain-Eagle Syndrome?: No Has the patient ever had any past reaction to a flu shot?: Yes Results AMB Hemoglobin A1c AMB Hemoglobin A1c 6.2 % Last Edit by NIRMALA Mart on 02/27/24 09:41 Immunizations Fluarix Triv [id number] (PF) 45 mcg (15 mcg x 3)/0.5 mL IM syringe Performing Provider: Yennifer Rodrigez MD [place] [facility] [place] [facility] Documented (not given) by: NIRMALA Mart on 02/27/24 09:38 Reason Not Given: Allergic to Vaccine Ingredient Results Reviewed Results Reviewed: Laboratory Last Values Hgb A1c (Clinic) 6.2 % (4.0-6.0) H 02/27/24 09:38 Coding Level of Care Code Est Pt Level 4 (20551) Complex EM visit Add On G2211 Diagnoses Type 2 diabetes mellitus without complication, without long-term current use of insulin E11.9 Diabetes mellitus type: type 2 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 use: without superintendent marine oil terminal use Diabetes mellitus complication status: without complication Essential hypertension I10 Dyslipidemia E78.5 Pernicious anemia D51.0 Time Spent (min) 21 Assessment & Plan Assessment & Plan (1) Diabetes mellitus: Code(s): E11.9 - Type 2 diabetes mellitus without complications Category: Medical Qualifiers: Diabetes mellitus type: type 2 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 A1c goal is equal or less than 7%. (2) Essential hypertension: Code(s): I10 - Essential (primary) hypertension Category: Medical Plan: Continue losartan. Blood pressure goal is equal or less than 130/80. (3) Dyslipidemia: Code(s): E78.5 - Hyperlipidemia, unspecified Category: Medical Plan: Continue statins. Continue low-cholesterol diet. Repeat lipid panel. LDL goal is less than 70. (4) Pernicious anemia: Code(s): D51.0 - Vitamin B12 deficiency anemia due to intrinsic factor deficiency Category: Medical Plan: Repeat vitamin B12 levels. Orders: Orders Influenza [id number] Immunization Today Z23 - Encounter for immunization AMB Hemoglobin A1c Today E11.9 - Type 2 diabetes mellitus without complications Vitamin B12 and Folate Today E53.8 - Deficiency of other specified B group vitamins Vitamin D 25-OH Total Today E55.9 - Vitamin D deficiency, unspecified Lipid Panel Today E78.5 - Hyperlipidemia, unspecified Microalbumin, Random (w Creat) Today R80.9 - Proteinuria, unspecified Comprehensive [place]. Panel Fast Today E11.9 - Type 2 diabetes mellitus without complications Complete Blood Count Auto Diff Today D64.9 - Anemia, unspecified IRON PROFILE Today D64.9 - Anemia, unspecified
== END 2024-02-27 10:16 | disposition home or self-care (01) ==
PROVIDERS: PCP Internal Medicine; Visit Provider Internal Medicine
DX: E11.9 Type 2 diabetes mellitus without complications (principal); I10 Essential (primary) hypertension; E78.5 Hyperlipidemia, unspecified; D51.0 Vitamin B12 deficiency anemia due to intrinsic factor deficiency; Z23 Encounter for immunization

== ENCOUNTER → 2024-02-27 09:26 | Outpatient (BNVA) | payer OTHER, SELFPAY | PROVIDERS: PCP Internal Medicine; Visit Provider Internal Medicine | DX: E11.9 Type 2 diabetes mellitus without complications (principal); I10 Essential (primary) hypertension; E78.5 Hyperlipidemia, unspecified; D51.0 Vitamin B12 deficiency anemia due to intrinsic factor deficiency | CPT/HCPCS: 83036; 90471; 99212 ==

== ENCOUNTER 2024-03-05 06:38 | Outpatient (REF) | payer OTHER, SELFPAY ==
[2024-03-05 06:55] LABS: MANUAL DIFF FLAG NO
[2024-03-05 07:31] LABS: Basophils Absolute Auto 0.1 X10*3/uL (0.0-0.2); Basophils Percent Auto 1.3 % (0-2); Eosinophils Absolute Auto 0.3 X10*3/uL (0.0-0.4); Eosinophils Percent Auto 4.8 % (0-4); Hematocrit 36.8 % (42.0-52.0); Hemoglobin 12.5 g/dl (14.0-18.0); Imm Gran Abs Auto 0.02 X10*3/uL (0.00-0.03); Imm Gran Pct Auto 0.3 % (0.0-0.4); Lymphocytes Percent Auto 28.9 % (20-40); Mean Corpuscular Hemoglobin 32.1 pg (27.0-33.0); Mean Corpuscular Volume 94.6 fL (80.0-98.0); Mean Platelet Volume 9.6 fL (9.4-12.4); Monocytes Absolute Auto 0.8 X10*3/uL (0.1-1.2); Monocytes Percent Auto 11.7 % (2-11); Neutrophils Absolute Auto 3.7 x10*3/uL (2.0-8.3); Platelet Count 261 X10*3/uL (160-400); Red Blood Count 3.89 X10*6/uL (4.60-5.80); Red Cell Distribution Width 16.2 % (11.0-16.0); White Blood Count 6.9 X10*3/uL (4.8-10.8)
[2024-03-05 07:58] LABS: Creatinine Urine 235.86 mg/dL; Microalbum/Creatinine Ratio Ur 3.8 ug/mg cr (<30)
[2024-03-05 08:10] LABS: Alanine Aminotransferase 15 U/L (0-40); Albumin Level 3.7 g/dL (3.5-5.0); Alkaline Phosphatase 112 U/L (39-117); Anion Gap 12 (12-20); Aspartate Amino Transferase 29 U/L (5-37); Bilirubin Total 0.8 mg/dL (0.0-1.0); Blood Urea Nitrogen 20 mg/dL (9-16); Carbon Dioxide 28 mmol/L (22-29); Chloride 106 mmol/L (96-108); Cholesterol 108 mg/dL (<200); Estimated Glomerular Filt Rate > 60; Glucose Fasting 128 mg/dL (60-99); HDL Cholesterol 39 mg/dL (>40); Iron 87 mcg/dL (45-160); LDL Cholesterol Calculated 56 mg/dL (<100); Percent Iron Saturation 32 % (15-50); Potassium 4.1 mmol/L (3.3-5.1); Sodium 142 mmol/L (135-145); Total Iron Binding Capacity 270 mcg/dL (228-428); Total Protein 7.2 g/dL (6.5-8.0); Triglycerides 65 mg/dL (<150); Unsaturated Iron Binding 183 ug/dL
[2024-03-05 08:28] LABS: Vitamin D 25-OH Total 27.3 ng/mL (>30)
[2024-03-05 08:43] LABS: Folate 13.5 ng/mL (> or = 4.0); Vitamin B12 > 2000 pg/mL (200-900)
== END 2024-03-05 06:39 | disposition home or self-care (01) ==
LOC: HO.LAB 06:38
PROVIDERS: PCP Internal Medicine; Visit Provider Internal Medicine
DX: E55.9 Vitamin D deficiency, unspecified (principal); E78.5 Hyperlipidemia, unspecified; E53.8 Deficiency of other specified B group vitamins; D51.0 Vitamin B12 deficiency anemia due to intrinsic factor deficiency; E11.9 Type 2 diabetes mellitus without complications; D64.9 Anemia, unspecified
CPT/HCPCS: 36415; 80053; 80061; 82043; 82306; 82570; 82607; 82746; 83540; 85025

== ENCOUNTER 2024-07-08 09:30 | Outpatient (AMB) | payer OTHER, SELFPAY ==
--- NOTE | 2024-07-08 09:47 | MHC.PC.OV ---
Vital Signs 07/08/24 09:49 Height 5 ft 7 in Weight 167 lb BMI 26.2 BP 120/70 Blood Pressure Location Lt brachial Position Sitting Intake Visit Reasons: dm Intake Note: Patient here for a follow up DM Ecommerce Analyst Required: Yes Ecommerce Analyst Language: Lightning Protection Installer Name: Yennifer Rodrigez MD Information Interpreted: non-clinical & clinical Accompanied by: Self / Same As Patient Allergies terbinafine Allergy (Intermediate, Verified 07/08/24 10:23) dyspepsia influenza vaccine Allergy (Intermediate, Uncoded 07/08/24 10:23) fever,chills Medication List - Last Reconciled 07/08/24 by Yennifer Rodrigez MD aspirin (Adult Low Dose Aspirin) 81 mg PO DAILY 90 days atorvastatin 40 mg PO DAILY 90 days folic acid 1 mg PO DAILY 90 days loratadine (Allergy Relief (loratadine)) 10 mg PO DAILY 90 days losartan 25 mg PO DAILY 90 days metformin 1,000 mg PO BID 90 days pioglitazone 45 mg PO DAILY 90 days terbinafine HCl 250 mg PO DAILY 90 days Tobacco use date assessed: 07/08/24 Fall risk assessment: No Falls in past year Last assessed Fall Risk: 07/08/24 Dental Screening Dental Screen Date: 07/08/24 Did you have a dental visit in the last 12 months?: No Did you have a dental problem in the last 6 months where you did not have access to dental care?: No Was dental information given to patient?: Patient has dentist HPI HPI Comments History of Present Illness Details The patient is an 83-year-old male presenting with follow-up for chronic medical conditions. He is known to have essential hypertension with good control on losartan 25 mg daily. His type 2 diabetes is also well-managed, with an A1c of 6.9% on metformin 1000 mg twice daily and pioglitazone 45 mg. The patient is on atorvastatin 40 mg for hypercholesterolemia, which remains under control. Pernicious anemia is managed with monthly injections, with annual follow-up visits to an oncologist/correctional case manager. Known allergies include terbinafine, causing adverse reactions, and influenza vaccine, resulting in fever and chills. Occasional rhinorrhea is reported, likely related to allergy, with the patient using loratadine for symptom relief. No new or worsening symptoms, such as chest pain or significant respiratory issues, are noted. [facility] Medical History Osteoarthritis of right knee Dyslipidemia Essential hypertension Pernicious anemia Diabetes mellitus Surgical History History of left cataract extraction History of laparoscopic cholecystectomy History of shoulder surgery Family History Father Stroke Mother Diabetes Daughter Asthma Son Asthma Son Asthma Social History Household Members: Significant Other Housing: Apartment Alcohol intake: current Alcohol intake frequency: holidays/special occasions only Alcohol type: beer, wine and hard liquor Patient Tobacco Use Status: Former Tobacco user Tobacco use type: Cigarette Cigarette Packs Per Day: 2 e-Cigarette/Vaping Use: Never Used Second Hand Smoke Exposure: No service: No Current occupational status: disabled Cognitive needs: No Hearing needs: No Vision needs: Yes Questionnaire PHQ-9 Over the last 2 weeks, how often have you been bothered by any of the following problems? 1. Little interest or pleasure in doing things: not at all 2. Feeling down, depressed, or hopeless: not at all 3. Trouble falling or staying asleep, or sleeping too much: not at all 4. Feeling tired or having little energy: not at all 5. Poor appetite or overeating: not at all 6. Feeling bad about yourself - or that you are a failure or have let yourself or your family down: not at all 7. Trouble concentrating on things, such as reading the newspaper or watching television: not at all 8. Moving or speaking so slowly that other people could have noticed. Or the opposite - being so fidgety or restless that you have been moving around a lot more than usual: not at all 9. Thoughts that you would be better off or of hurting yourself in some way: not at all Total score: 0 Depression Screening Interpretation: Negative Depression Screening Done: Yes 25365 - PHQ-9 Billing: Yes Source: Developed by Drs. Alfred Gallagher, Emy Denson, Zack Jeff and colleagues, with an educational bin from [employer]. Thrive Questionnaire Date Thrive assessed: 07/08/24 I am a: Patient What is your living situation today?: I have a steady place to live Within the past 12 months, did the food you bought not last and you didn't have the money to get more?: Never true Within the past 12 months, did you worry whether your food would run out before you got money to buy more?: Never true Do you have trouble paying for medicines?: No Do you have trouble getting transportation to medical appointments?: No Do you have trouble paying your heating and electricity bill?: No Do you have trouble taking care of your child, family member or friend?: No Do you have trouble with day-to-day activities such as bathing, preparing meals, shopping, managing finances, etc.?: No Are you currently unemployed and looking for a job?: No Are you interested in more education?: No Please select the resources that you would like help with: None Currently or been in a relationship where the following occur: No concerns reported THRIVE Score: 0 AUDIT C Alcohol Use Questionnaire (AUDIT-C) 1. How often do you have a drink containing alcohol?: Monthly or less 2. How many drinks containing alcohol do you have on a typical day when you are drinking?: 1 or 2 3. How often do you have six or more drinks on one occasion?: Never Total Score: 1 Score Reviewed/Action Taken: No BALDO-7 AMB Questionnaire BALDO-7 Date BALDO - 7 assessed: 07/08/24 Feeling nervous, anxious, or on edge: 0 = Not at all Not being able to stop or control worryin = Not at all Worrying too much about different things: 0 = Not at all Trouble relaxin = Not at all Being so restless that it is hard to sit still: 0 = Not at all Becoming easily annoyed or irritable: 0 = Not at all Feeling afraid as if something awful might happen: 0 = Not at all Total BALDO-7 score (0-4 normal; 5-9 mild; 10-14 moderate; 15-21 severe): 0 Source: Developed by Drs. Alfred Gallagher, Emy Denson, Zack Jeff and colleagues, with an educational bin from [employer]. BALDO-7 Assessment Billing BALDO-7 Assessment Tool: BALDO-7 Assessment 32248 Review of Systems Const All systems reviewed & are unremarkable except as noted in HPI and below Card Denies chest pain at rest, Denies chest pain with activity, Denies edema, Denies irregular heart rhythm, Denies claudication, Denies dyspnea, Denies dyspnea on exertion, Denies orthopnea, Denies paroxysmal nocturnal dyspnea and Denies slow heart rate Resp Denies cough, Denies dyspnea and Denies dyspnea on exertion GI Denies abdominal pain, Denies change in bowel habits, Denies excessive flatus, Denies nausea and Denies vomiting Denies urinary hesitancy, Denies urinary incontinence and Denies urinary urgency Neuro Denies behavioral changes and Denies lack of coordination Psych Denies behavioral changes Physical exam (Primary Care) Vital Signs: Last Vital Signs BP 120/70 07/08/24 09:49 BMI result Body Mass Index 26.2 Tobacco/Smoking Status: Tobacco use Status Tobacco use date assessed 07/08/24 07/08/24 09:56 Patient Tobacco Use Status Former Tobacco user 07/08/24 09:55 Tobacco use type Cigarette 07/08/24 09:55 e-Cigarette/Vaping Use Never Used 07/08/24 09:55 PHQ-9: PHQ-9 Score PHQ-9: Total score 0 07/08/24 10:24 Depression Screening Interpretation: Negative Thrive Assessment: Date of Thrive Assessment Date Thrive assessed 07/08/24 07/08/24 09:55 Currently or been in a relationship where the following occur: No concerns reported Neck Neck: Yes normal visual inspection and Yes supple Resp Effort & Inspection: normal respiratory effort Auscultation: clear to auscultation bilaterally Cardio Jugular venous distension: no JVD Rate: regular rate Rhythm: regular rhythm Heart sounds: S1 normal heart sound present and S2 normal heart sound present Extrem General: Yes full ROM Results AMB Hemoglobin A1c AMB Hemoglobin A1c 6.9 % Last Edit by NIRMALA Mart on 07/08/24 09:59 Results Reviewed Results Reviewed: Laboratory Last Values Hgb A1c (Clinic) 6.9 % (4.0-6.0) H 07/08/24 09:47 Coding Level of Care Code Est Pt Level 4 (99078) Complex EM visit Add On G2211 Diagnoses Type 2 diabetes mellitus without complication, without long-term current use of insulin E11.9 Diabetes mellitus type: type 2 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 insulin use: without assisted use Diabetes mellitus complication status: without complication Essential hypertension I10 Pernicious anemia D51.0 Dyslipidemia E78.5 Seasonal allergic rhinitis due to pollen J30.1 Allergic rhinitis trigger: pollen Allergic rhinitis seasonality: seasonal Additional Codes BALDO-7 Assessment Billing - BALDO-7 Assessment Tool: BALDO-7 Assessment 47409 ([id number]) PHQ-9 - 18600 - PHQ-9 Billing: Yes ([id number]) Time Spent (min) 21 Assessment & Plan Assessment & Plan (1) Diabetes mellitus: Code(s): E11.9 - Type 2 diabetes mellitus without complications Category: Medical Qualifiers: Diabetes mellitus type: type 2 Diabetes mellitus assisted insulin use: without local intermodal truck driver use Diabetes mellitus complication status: without complication Qualified Code(s): E11.9 - Type 2 diabetes mellitus without complications (2) Essential hypertension: Code(s): I10 - Essential (primary) hypertension Category: Medical (3) Pernicious anemia: Code(s): D51.0 - Vitamin B12 deficiency anemia due to intrinsic factor deficiency Category: Medical (4) Dyslipidemia: Code(s): E78.5 - Hyperlipidemia, unspecified Category: Medical (5) Allergic rhinitis: Code(s): J30.9 - Allergic rhinitis, unspecified Category: Medical Qualifiers: Allergic rhinitis trigger: pollen Allergic rhinitis seasonality: seasonal Qualified Code(s): J30.1 - Allergic rhinitis due to pollen Plan The current care plan includes continuation of losartan, metformin, pioglitazone, and atorvastatin for managing hypertension, diabetes, and hypercholesterolemia. Monthly injections continue for pernicious anemia, with annual oncologist/correctional case manager visits. Loratadine for allergy relief will be used as needed. Labs will be checked before the next visit to monitor renal and hepatic function along with cholesterol levels. Concerning allergies, the patient will avoid triggers, with no new interventions required. Tetanus vaccination should be obtained from a pharmacy. Patient was informed and verbally consented to the use of an ambient scribe for clinic note documentation during this visit. During the visit, I explained the management strategy for essential hypertension, type 2 diabetes, hypercholesterolemia, and pernicious anemia. The patient agreed to continue current medications and supplement his allergy management with loratadine. I discussed potential side effects of these treatments and emphasized the importance of regular follow-up with specialists and laboratory testing for monitoring. I advised obtaining the tetanus vaccination from the pharmacy due to its current unavailability at the clinic, and we discussed the avoidance of identified allergens. Orders: Orders Vitamin B12 and Folate 4 Months E53.8 - Deficiency of other specified B group vitamins Lipid Panel 4 Months E78.5 - Hyperlipidemia, unspecified Complete Blood Count Auto Diff 4 Months D64.9 - Anemia, unspecified IRON PROFILE 4 Months D64.9 - Anemia, unspecified AMB Hemoglobin A1c Today E11.9 - Type 2 diabetes mellitus without complications Microalbumin, Random (w Creat) 4 Months R80.9 - Proteinuria, unspecified Comprehensive [place]. Panel Fast 4 Months E11.9 - Type 2 diabetes mellitus without complications Patient Instructions: - Continue all current medications as prescribed. - Use loratadine as needed for allergy symptoms. - Obtain a tetanus vaccination at the pharmacy. - Follow up with the oncologist/correctional case manager as scheduled. - Complete requested laboratory tests before the next visit. - Return for routine follow-up in four months or as symptoms change.
[2024-07-08 09:49] VITALS: BP 120/70; BMI 26.2
--- OUTSIDE RECORDS SUMMARY | 2024-07-08 10:36 | XMS_ITS | Clinical Summary ---
Author Organization [employer] Address [address] [place] [address] [address] [place] [address] Care Team Providers Care Circular Saw Filer Name Role Phone Unavailable Primary Care Provider Unavailabl e Immunizations Name Administration Dates Next Due Influenza, IIV3, injectable 12/04/2010, 0 Influenza, Split (incl. gio fied surface antigen) 02/01/2012 Pfizer Covid-19 Vaccine 12+ 01/15/2023 Pneumococcal Polysaccharide PPSV23 02/16/2016,,10/01/2001 TD (adult), 2 Lf tetanus tox oid, preservative free, adsorbed 06/09/2003 Social History Tobacco Use Types Packs/Day Years Used Date Smoking Tobacco: Never Assessed Sex and Gender Information Value Date Recorded Sex Assigned at Male 02/12/2022 10:16 AM EDT Legal Sex Male 10:16 AM EDT Gender Identity Male 02/12/2022 10:16 AM EDT Sexual Orientation Choose not to disclose 2021 10:16 AM EDT Plan of Treatment Health Maintenance Due Date Last Done Comments Depression Screening 1941 Lipid Panel 1941 SDOH Screening 1941 Alcohol/Substance Use Screening 1953 Tobacco Screening 1953 Zoster Vaccines (1 of 2) 08/02/1991 DTaP/Tdap/Td Vaccines (1 - Tdap) 06/10/2003 06/09/2003 RSV Patients and Patients Aged 60 years or older (1 - 1-dose 75+ series) 2016 Pneumococcal Vaccine: 50+ Years (2 of 2 - PCV) 02/15/2017 02/16/2016, 09/05/2006, 10/01/2001 COVID-19 Vaccine ( season) 2023 01/15/2023, 01/25/2022, 10/31/2021, Additional history exists Influenza Vaccine (#1) 2023 2, 12/04/2010, 11/30/2009 HIB Vaccines Aged Out No longer eligi ble based on patient's age to complete this topic HPV Vaccines Aged Out No longer eligi ble based on patient's age to complete this topic Hepatitis A Vaccines Aged Out No long er eligible based on patient's age to complete this topic Hepatitis B Vaccines Aged Out No long er eligible based on patient's age to complete this topic IPV Vaccines Aged Out No longer eligi ble based on patient's age to complete this topic Meningococcal Vaccine Aged Out No win shade eligible based on patient's age to complete this topic RSV under 20 months Aged Out No longe r eligible based on patient's age to complete this topic Rotavirus Vaccines Aged Out No longer eligible based on patient's age to complete this topic Insurance DUAL COMPLETE
== END 2024-07-08 10:34 | disposition home or self-care (01) ==
LOC: HO.HMCH 09:31
PROVIDERS: PCP Internal Medicine; Visit Provider Internal Medicine
DX: E11.9 Type 2 diabetes mellitus without complications (principal); I10 Essential (primary) hypertension; D51.0 Vitamin B12 deficiency anemia due to intrinsic factor deficiency; E78.5 Hyperlipidemia, unspecified; J30.1 Allergic rhinitis due to pollen

== ENCOUNTER → 2024-07-08 09:30 | Outpatient (BNVA) | payer OTHER, SELFPAY | PROVIDERS: PCP Internal Medicine; Visit Provider Internal Medicine | DX: E11.9 Type 2 diabetes mellitus without complications (principal); E78.5 Hyperlipidemia, unspecified; D51.0 Vitamin B12 deficiency anemia due to intrinsic factor deficiency; J30.1 Allergic rhinitis due to pollen; I10 Essential (primary) hypertension | CPT/HCPCS: 83036; 96127; 99212 ==

== ENCOUNTER 2024-11-13 09:06 | Outpatient (REF) | payer OTHER, SELFPAY ==
--- OUTSIDE RECORDS SUMMARY | 2024-11-13 09:21 | XMS_ITS | Clinical Summary ---
Author Organization [employer] Address [address] [place] [address] [address] [place] [address] Care Team Providers Care Tawer Name Role Phone Unavailable Primary Care Provider Unavailabl e Immunizations Immunization Administration Dates Next Due Influenza, IIV3, injectable [...] 10/31/2021, Additional history exists Influenza Vaccine (#1) 2024 2, 12/04/2010, 11/30/2009 HIB Vaccines Aged Out [...] patient's age to complete this topic Meningococcal B Vaccine Aged Out No l onger eligible based on patient's age to complete [...]
[2024-11-13 09:29] LABS: Hematocrit 37.7 % (42.0-52.0); Hemoglobin 12.7 g/dl (14.0-18.0); MANUAL DIFF FLAG NO; Red Blood Count 4.03 X10*6/uL (4.60-5.80); White Blood Count 6.5 X10*3/uL (4.8-10.8)
[2024-11-13 09:30] LABS: Imm Gran Abs Auto 0.02 X10*3/uL (0.00-0.03); Imm Gran Pct Auto 0.3 % (0.0-0.4); Lymphocytes Absolute Auto 1.7 X10*3/uL (1.2-4.9); Mean Corpuscular HGB Conc 33.7 g/dl (31.0-36.0); Mean Corpuscular Hemoglobin 31.5 pg (27.0-33.0); Mean Corpuscular Volume 93.5 fL (80.0-98.0); NRBC Abs Auto 0.000 X10*3/uL (0.0-0.012); NRBC Pct Auto 0.0 /100WBC (0.0-0.2); Platelet Count 237 X10*3/uL (160-400)
[2024-11-13 10:04] LABS: Microalbum/Creatinine Ratio Ur 5.2 ug/mg cr (<30)
[2024-11-13 10:07] LABS: Alanine Aminotransferase 26 U/L (0-40); Albumin Level 4.1 g/dL (3.5-5.0); Alkaline Phosphatase 94 U/L (39-117); Anion Gap 11 (12-20); Aspartate Amino Transferase 33 U/L (5-37); Blood Urea Nitrogen 23 mg/dL (9-16); Calcium 9.0 mg/dL (8.4-10.2); Carbon Dioxide 28 mmol/L (22-29); Chloride 107 mmol/L (96-108); Cholesterol 97 mg/dL (<200); Estimated Glomerular Filt Rate > 60; HDL Cholesterol 33 mg/dL (>40); Iron 94 mcg/dL (45-160); Percent Iron Saturation 33 % (15-50); Potassium 4.6 mmol/L (3.3-5.1); Sodium 141 mmol/L (135-145); Total Iron Binding Capacity 282 mcg/dL (228-428); Total Protein 7.4 g/dL (6.5-8.0); Triglycerides 94 mg/dL (<150); Unsaturated Iron Binding 188 ug/dL
[2024-11-13 10:33] LABS: Folate 7.6 ng/mL (> or = 4.0); Vitamin B12 653 pg/mL (200-900)
== END 2024-11-13 09:07 | disposition home or self-care (01) ==
LOC: HO.LAB 09:06
PROVIDERS: PCP Internal Medicine; Visit Provider Internal Medicine
DX: E11.9 Type 2 diabetes mellitus without complications (principal); D64.9 Anemia, unspecified; E53.8 Deficiency of other specified B group vitamins; E78.5 Hyperlipidemia, unspecified
CPT/HCPCS: 36415; 80053; 80061; 82043; 82570; 82607; 82746; 83540; 85025

== ENCOUNTER 2024-12-03 09:12 | Outpatient (AMB) | payer OTHER, SELFPAY ==
--- NOTE | 2024-12-03 09:26 | MHC.PC.OV ---
Vital Signs 12/03/24 09:27 Height 5 ft 7 in Weight 155 lb 6 oz BMI 24.3 BP 110/60 Blood Pressure Location Lt brachial Position Sitting Pulse 77 Pulse Source Pulse Oximeter Temp 97.3 F Temp Source Temporal Artery Scan Pulse Oximetry (%) 96 Oxygen Delivery Method Room Air Intake Visit Reasons: dm Intake Note: Patient is here to follow up on DM. 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 Accompanied by: Self / Same As Patient Allergies terbinafine Allergy (Intermediate, Verified 12/03/24 09:50) dyspepsia influenza vaccine Allergy (Intermediate, Uncoded 12/03/24 09:50) fever,chills Medication List - Last Reconciled 12/03/24 by Yennifer Rodrigez MD aspirin (Adult Low Dose Aspirin) 81 mg PO DAILY 90 days atorvastatin 40 mg PO DAILY 90 days folic acid 1 mg PO DAILY 90 days loratadine (Allergy Relief (loratadine)) 10 mg PO DAILY 90 days losartan 25 mg PO DAILY 90 days metformin 1,000 mg PO BID 90 days pioglitazone 45 mg PO DAILY 90 days terbinafine HCl 250 mg PO DAILY 90 days Tobacco use date assessed: 12/03/24 Fall risk assessment: No Falls in past year Last assessed Fall Risk: 12/03/24 Dental Screening Dental Screen Date: 07/08/24 HPI HPI Comments History of Present Illness Details The patient is an 84-year-old male presenting with diabetes mellitus management. His hemoglobin A1c has increased to 7.5% from 6.9% in June, indicating a need for better glycemic control. He has been taking metformin 1000 mg twice daily, but there was a misunderstanding, and he was taking it only once daily. The patient also has a history of pernicious anemia, for which he receives vitamin B12 injections. His vitamin B12 and folic acid levels are within normal limits. He is on atorvastatin 40 mg for hyperlipidemia, with his LDL cholesterol at 46 mg/dL, which is below the target of 70 mg/dL. He also takes losartan 20 mg for hypertension. [facility] Medical History (Updated 12/03/24 @ 09:59 by Yennifer Rodrigez MD) Osteoarthritis of right knee Dyslipidemia Essential hypertension Pernicious anemia Diabetes mellitus Surgical History History of colonoscopy (~12/05/12) History of left cataract extraction History of laparoscopic cholecystectomy History of shoulder surgery Family History Father Stroke Mother Diabetes Daughter Asthma Son Asthma Son Asthma Social History Household Members: Significant Other Housing: Apartment Alcohol intake: current Alcohol intake frequency: holidays/special occasions only Alcohol type: beer, wine and hard liquor Patient Tobacco Use Status: Former Tobacco user Tobacco use type: Cigarette Cigarette Packs Per Day: 2 e-Cigarette/Vaping Use: Never Used Second Hand Smoke Exposure: Yes service: No Current occupational status: disabled Cognitive needs: No Hearing needs: No Vision needs: Yes Questionnaire PHQ-9 Over the last 2 weeks, how often have you been bothered by any of the following problems? 1. Little interest or pleasure in doing things: not at all 2. Feeling down, depressed, or hopeless: nearly every day 3. Trouble falling or staying asleep, or sleeping too much: not at all 4. Feeling tired or having little energy: not at all 5. Poor appetite or overeating: not at all 6. Feeling bad about yourself - or that you are a failure or have let yourself or your family down: not at all 7. Trouble concentrating on things, such as reading the newspaper or watching television: not at all 8. Moving or speaking so slowly that other people could have noticed. Or the opposite - being so fidgety or restless that you have been moving around a lot more than usual: not at all 9. Thoughts that you would be better off or of hurting yourself in some way: not at all Total score: 3 Depression Screening Interpretation: Negative Depression Screening Done: Yes 33906 - PHQ-9 Billing: Yes Source: Developed by Drs. Alfred Gallagher, Emy Denson, Zack Jeff and colleagues, with an educational bin from [employer]. Thrive Questionnaire Date Thrive assessed: 07/08/24 I am a: Patient What is your living situation today?: I have a steady place to live Within the past 12 months, did the food you bought not last and you didn't have the money to get more?: Sometimes True Within the past 12 months, did you worry whether your food would run out before you got money to buy more?: Sometimes True Do you have trouble paying for medicines?: No Do you have trouble getting transportation to medical appointments?: Yes Do you have trouble paying your heating and electricity bill?: No Do you have trouble taking care of your child, family member or friend?: No Do you have trouble with day-to-day activities such as bathing, preparing meals, shopping, managing finances, etc.?: No Are you currently unemployed and looking for a job?: No Are you interested in more education?: No Please select the resources that you would like help with: None Currently or been in a relationship where the following occur: No concerns reported THRIVE Score: 3 AUDIT C Alcohol Use Questionnaire (AUDIT-C) 1. How often do you have a drink containing alcohol?: Never Total Score: 0 Score Reviewed/Action Taken: No BALDO-7 AMB Questionnaire BALDO-7 Date BALDO - 7 assessed: 07/08/24 Feeling nervous, anxious, or on edge: 1 = Several days Not being able to stop or control worryin = Not at all Worrying too much about different things: 0 = Not at all Trouble relaxin = Not at all Being so restless that it is hard to sit still: 0 = Not at all Becoming easily annoyed or irritable: 0 = Not at all Feeling afraid as if something awful might happen: 0 = Not at all Total BALDO-7 score (0-4 normal; 5-9 mild; 10-14 moderate; 15-21 severe): 1 Source: Developed by Drs. Alfred Gallagher, Emy Denson, Zack Jeff and colleagues, with an educational bin from [employer]. BALDO-7 Assessment Billing BALDO-7 Assessment Tool: BALDO-7 Assessment 02845 Review of Systems Const All systems reviewed & are unremarkable except as noted in HPI and below Card Denies chest pain at rest, Denies chest pain with activity, Denies edema, Denies irregular heart rhythm, Denies claudication, Denies dyspnea, Denies dyspnea on exertion, Denies orthopnea, Denies paroxysmal nocturnal dyspnea and Denies slow heart rate Resp Denies cough, Denies dyspnea and Denies dyspnea on exertion GI Denies abdominal pain, Denies change in bowel habits, Denies excessive flatus, Denies nausea and Denies vomiting Denies urinary hesitancy, Denies urinary incontinence and Denies urinary urgency Musc Denies abnormal gait, Denies atrophy, Denies deformity and Denies limited range of motion Skin/Breast Denies bleeding lesions, Denies changing lesions and Denies rash Neuro Denies abnormal gait, Denies behavioral changes and Denies lack of coordination Psych Denies behavioral changes Physical exam (Primary Care) Vital Signs: Last Vital Signs Temp 97.3 F 12/03/24 09:27 Pulse 77 12/03/24 09:27 BP 110/60 12/03/24 09:27 Pulse Ox 96 12/03/24 09:27 Oxygen Delivery Method Room Air 12/03/24 09:27 BMI result Body Mass Index 24.3 Tobacco/Smoking Status: Tobacco use Status Tobacco use date assessed 12/03/24 12/03/24 09:34 Patient Tobacco Use Status Former Tobacco user 12/03/24 09:34 Tobacco use type Cigarette 12/03/24 09:34 e-Cigarette/Vaping Use Never Used 12/03/24 09:34 PHQ-9: PHQ-9 Score PHQ-9: Total score 3 12/03/24 09:34 Depression Screening Interpretation: Negative Thrive Assessment: Date of Thrive Assessment Date Thrive assessed 07/08/24 12/03/24 09:34 Currently or been in a relationship where the following occur: No concerns reported Resp Effort & Inspection: normal respiratory effort Auscultation: clear to auscultation bilaterally Cardio Jugular venous distension: no JVD Rate: regular rate Rhythm: regular rhythm Heart sounds: S1 normal heart sound present and S2 normal heart sound present Extrem General: Yes full ROM Results AMB Hemoglobin A1c AMB Hemoglobin A1c 7.5 % Last Edit by NIRMALA Gusman on 12/03/24 09:42 Results Reviewed Results Reviewed: Laboratory Last Values Hgb A1c (Clinic) 7.5 % (4.0-6.0) H 12/03/24 09:26 Coding Level of Care Code Est Pt Level 4 (67487) Complex EM visit Add On G2211 Diagnoses Essential hypertension I10 Type 2 diabetes mellitus without complication, without long-term current use of insulin E11.9 Diabetes mellitus type: type 2 Diabetes mellitus fdc insulin use: without fdc use Diabetes mellitus complication status: without complication Dyslipidemia E78.5 Pernicious anemia D51.0 Allergic conjunctivitis H10.10 Additional Codes PHQ-9 - 93921 - PHQ-9 Billing: Yes ([id number]) BALDO-7 Assessment Billing - BALDO-7 Assessment Tool: BALDO-7 Assessment 65812 ([id number]) Time Spent (min) 21 Assessment & Plan Assessment & Plan (1) Essential hypertension: Code(s): I10 - Essential (primary) hypertension Category: Medical (2) Diabetes mellitus: Code(s): E11.9 - Type 2 diabetes mellitus without complications Category: Medical Qualifiers: Diabetes mellitus type: type 2 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 It is important to ensure medication adherence to prevent further elevation of blood glucose levels. For pernicious anemia, the patient will continue receiving vitamin injections, as his levels are currently normal. The patient will maintain atorvastatin 40 mg for hyperlipidemia, as his LDL cholesterol is well-controlled. Losartan 20 mg will be continued for hypertension management. Patient was informed and verbally consented to the use of an ambient scribe for clinic note documentation during this visit. Orders: Orders Lipid Panel 4 Months E78.5 - Hyperlipidemia, unspecified Microalbumin, Random (w Creat) 4 Months R80.9 - Proteinuria, unspecified Comprehensive [place]. Panel Fast 4 Months E78.5 - Hyperlipidemia, unspecified AMB Hemoglobin A1c Today E11.9 - Type 2 diabetes mellitus without complications Vitamin D 25-OH Total 4 Months E55.9 - Vitamin D deficiency, unspecified Vitamin B12 and Folate 4 Months E53.8 - Deficiency of other specified B group vitamins Medications: New cromolyn 4% 1 drp ophthalmic (eye) QID 10 mL 0RF 30 days H10.10 - Acute atopic conjunctivitis, unspecified eye Refilled metformin 1,000 mg PO BID 180 tabs 1RF 90 days E11.9 - Type 2 diabetes mellitus without complications pioglitazone 45 mg PO DAILY 90 tabs 1RF 90 days E11.9 - Type 2 diabetes mellitus without complications losartan 25 mg PO DAILY 90 tabs 3RF 90 days E11.9 - Type 2 diabetes mellitus without complications atorvastatin 40 mg PO DAILY 90 tabs 2RF 90 days E11.9 - Type 2 diabetes mellitus without complications aspirin (Adult Low Dose Aspirin) 81 mg PO DAILY 90 tabs 2RF 90 days E11.9 - Type 2 diabetes mellitus without complications folic acid 1 mg PO DAILY 90 tabs 1RF 90 days Discontinued terbinafine HCl Discontinued Reason: Patient Completed Course 250 mg PO DAILY 90 days 90 tabs 0RF
[2024-12-03 09:27] VITALS: BP 110/60; PULSE 77; TEMP 36.3; O2SAT 96; BMI 24.3
--- OUTSIDE RECORDS SUMMARY | 2024-12-03 10:17 | XMS_ITS | Clinical Summary ---
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
== END 2024-12-03 10:07 | disposition home or self-care (01) ==
LOC: HO.HMCH 09:13
PROVIDERS: PCP Internal Medicine; Visit Provider Internal Medicine
DX: I10 Essential (primary) hypertension (principal); E11.9 Type 2 diabetes mellitus without complications; E78.5 Hyperlipidemia, unspecified; D51.0 Vitamin B12 deficiency anemia due to intrinsic factor deficiency; H10.10 Acute atopic conjunctivitis, unspecified eye

== ENCOUNTER → 2024-12-03 09:12 | Outpatient (BNVA) | payer OTHER, SELFPAY | PROVIDERS: PCP Internal Medicine; Visit Provider Internal Medicine | DX: E11.9 Type 2 diabetes mellitus without complications (principal); I10 Essential (primary) hypertension; E78.5 Hyperlipidemia, unspecified; D51.0 Vitamin B12 deficiency anemia due to intrinsic factor deficiency; H10.10 Acute atopic conjunctivitis, unspecified eye; Z87.891 Personal history of nicotine dependence | CPT/HCPCS: 83036; 96127; 99212 ==